=== PATIENT | male | born 1990 | race Caucasian/White ===

== ENCOUNTER 2020-09-30 22:29 | Emergency (ER) | payer SELFPAY ==
[2020-09-30 22:32] VITALS: BP 177/98
[2020-09-30] MEDS ORDERED: LIDOCAINE-MPF 1%, 5ML INFIL ONE (23:00)
== END 2020-09-30 23:02 | disposition home or self-care (01) ==
LOC: ED 22:40
DX: T16.1XXA Foreign body in right ear, initial encounter (principal); X58.XXXA Exposure to other specified factors, initial encounter; Y93.89 Activity, other specified; Y92.89 Other specified places as the place of occurrence of the external cause; Y99.8 Other external cause status
CPT/HCPCS: 69200; 99284